=== PATIENT | female | born 1965 | race Caucasian/White ===

== ENCOUNTER 2024-03-23 02:55 | Emergency (ER) | payer BC, SELFPAY ==
[2024-03-23 02:57] VITALS: BP 152/90
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
[2024-03-23] MEDS: TORADOL 30 MG IM (04:33)
[2024-03-23] MEDS: VALIUM INJECTION 5 MG IM (04:33)
[2024-03-23 05:55] VITALS: BP 145/87
== END 2024-03-23 05:55 | disposition home or self-care (01) ==
LOC: EMR 02:55
PROVIDERS: EMERGENCY PHYSICIAN Student in an Organized Health Care Education/Training Program; FAMILY PHYSICIAN Family Medicine
DX: M54.2 Cervicalgia (principal); R03.0 Elevated blood-pressure reading, without diagnosis of hypertension
CPT/HCPCS: 99284; 96372 ×2

== ENCOUNTER 2024-03-24 21:33 | Emergency (ER) | payer BC, SELFPAY ==
[2024-03-24 21:33] VITALS: BMI 23.1
[2024-03-24 21:40] VITALS: BP 133/100
[2024-03-24 22:26] VITALS: BP 126/72
[2024-03-24 23:00] VITALS: BP 132/86
--- NOTE | 2024-03-24 23:35 | ED.GENMED ---
History of Present Illness
General
Chief Complaint: Musculo-Skeletal Complaint
Source: patient
Exam Limitations: none
Time Seen by Provider: 03/24/24 23:12
History of Present Illness
History of Present Illness:
See MDM
Past History
Past History
ED Past Medical History: Psychiatric
ED Past Surgical History:
Social History
Personal:
Living: with family
Employment: Employed
Phy Exam
Physical Exam
Physical Exam:
See MDM
Course
Orders/Labs/Results
Orders:
Orders
03/24/24 23:28
CT Cervical Spine W/o Iv Contr Urgent
Comment:
Reason For Exam: posterior neck pain
03/24/24 23:33
Dexamethasone Sod Phosphate [Decadron] 10 mg IV NOW STA
HYDROmorphone [Dilaudid] 1 mg IV NOW STA
03/24/24 23:56
Complete Blood Count/With Diff Urgent
Comprehensive Metabolic Panel Urgent
Abnormal Lab Results
03/24/24
23:56
WBC 11.9 H 10^3/uL
(4.8-10.8)
Hct 36.5 L %
(37.0-47.0)
Abs Immat Gran (auto) 0.1 H 10^3/uL
(0-0.05)
Absolute Neuts (auto) 9.8 H 10^3/uL
(1.4-6.5)
Absolute Lymphs (auto) 0.8 L 10^3/uL
(1.2-3.4)
Absolute Monos (auto) 1.0 H 10^3/uL
(0.1-0.6)
Neutrophils % 82.7 H %
(42.2-75.2)
Lymphocytes % 6.8 L %
(20.5-51.1)
Sodium 130 L mmol/L
(135-145)
Chloride 93 L mmol/L
(98-107)
Glucose 106 H mg/dl
(70-99)
03/24/24 23:56
03/24/24 23:56
Vital Signs
Initial and Last Documented VS:
Initial Vital Signs
Temp Pulse Resp BP Pulse Ox
98.2 F 108 24 133/100 98
03/24/24 21:40 03/24/24 21:40 03/24/24 21:40 03/24/24 21:40 03/24/24 21:40
Last Documented Vital Signs
Temp Pulse Resp BP Pulse Ox
98.2 F 88 16 127/86 96
03/24/24 21:40 03/25/24 00:00 03/25/24 00:00 03/25/24 00:00 03/25/24 00:30
MDM/Problems Addressed
Differential Diagnosis Includes:
HPI and MDM Narrative:
58-year-old female presenting with ongoing neck pain. She was recently evaluated in the emergency department and diagnosed with likely cervical radiculopathy. She was given a course of muscle relaxants and NSAIDs. She followed up with orthopedics
today and had an x-ray and the diagnosis was confirmed. She is supposed to follow-up with therapy. Patient states the pain is returning and going down both arms. She states she cannot find a comfortable position
Given the ongoing pain, will obtain CT looking for any other pathology but discussed the diagnosis of cervical radicular will give dose of Decadron and will give dose of Dilaudid
Physical exam
General: Mildly uncomfortable
HEENT: protecting airway
Neck: supple. No significant posterior pain. No meningismus. No tenderness to palpation of carotids
CV: No evidence of cyanosis
Resp: No accessory muscle use
Abd: Non-distended
Extremities: No deformities
Neuro: alert. Both upper extremities neurovascularly intact. Muscle strength intact
Psych: Normal affect
Skin: Intact
Problems Addressed including Acute and Chronic Conditions affecting care:
1. Cervical radiculopathy
Acuity: acute
Prognosis: stable
Details: Patient is failing NSAIDs and muscle relaxants. Will give dose of Decadron and Dilaudid and obtain CT
Updates
CT shows expected changes to coincide with her cervical radiculopathy. On reevaluation after pain medicine, patient states that her pain has drastically improved and she feels comfortable going home. We discussed incidental mild hyponatremia and
discussed return precautions and follow-up PCP
Differential Diagnosis (but not limited to): Cervical radiculopathy, muscle spasm, degenerative disc disease
Testing considered: Cervical MRI but this is better suited in the outpatient setting
Drug therapy (if applicable): OTC meds, please see d/c instruction regarding Rx drugs
Amount and/or Complexity of Data Reviewed
Clinical info obtained from: Patient
External data reviewed: N/A
Labs I independently reviewed (but not limited to): Mild hyponatremia
Radiology: The CT scan was personally and independently reviewed. In addition, official CT report reviewed.
Pulse Ox: not hypoxic
EKG independently reviewed: N/A
Personal Care Attendant: N/A
Critical Care: N/A
Risk of Complication:
Social Determinants of health: Good social support
Discussed with other providers: N/A
Escalation of Care includes Admit/Obs: After being observed in the Emergency Department, pt stable for discharge.
Occasional wrong word or 'sound a like' substitutions may have occurred due to the inherent limitations of voice recognition software. Read the chart carefully and recognize, using context, where substitutions have occurred.
*Critical Care Note
Total Time (30-74mins, 75-104mins- exclusive of procedures): Not Applicable
ED Attending Note
-
Portions of this chart may have been created with voice recognition software.� Occasional wrong word or��sound alike� substitutions may have occurred due to the inherent limitations of voice recognition software.
Discharge Plan
Departure
Patient Disposition: Home (Routine Discharge)
Date of Disposition: 03/25/24
Time of Disposition: 00:44
Patient with high blood pressure during this ER visit?: No
Discharge Problem:
Cervical radiculopathy
Instructions: Radiculopathy (DC)
Prescriptions:
New
oxycodone 5 mg tablet
5 mg PO Q8H PRN (Reason: Pain) Qty: 14 0RF
No Action
oxycodone-acetaminophen 5 MG/325 MG tablet
1 tab PO Q6HPRN PRN (Reason: pain) Qty: 10 0RF
ibuprofen 600 MG tablet
600 mg PO Q6HPRN PRN (Reason: pain) Qty: 20 0RF
amoxicillin-pot clavulanate 1 TABLET tablet
1 tab PO Q12 Qty: 20 0RF
diazepam [Valium] 2 mg tablet
2 mg PO TID PRN (Reason: muscle spasm) Qty: 10 0RF
diclofenac sodium 75 mg tablet,delayed release (DR/EC)
75 mg PO BID Qty: 10 0RF
Referrals:
Jaya Salomon MD [Family Provider] -
Activity Restrictions/Additional Instructions:
Please return for any worsening symptoms.
You may return at any time if you have further concerns.
Please follow up with your doctor at the first available appointment, preferably this week. Please discuss your symptoms and physical therapy.
You were given a prescription for narcotics. If you require this pain medicine, please take a daily [id number] stool softener to avoid constipation.
Thank you for choosing [facility].
Interventions
Interventions:
*Risk Screen - Suicide Last Done: 03/24/24 21:40
*General Assessment Last Done: 03/24/24 22:41
*Neglect/Abuse Screening Last Done: 03/24/24 21:40
ED- Fall Risk Assessment Last Done: 03/24/24 22:41
*ED COVID-19 Vaccine History Last Done: 03/24/24 22:44
ED-Musculoskeletal Assessment Last Done: 03/24/24 22:41
Discharge Date and Time
Print Language: WELSH
[2024-03-25] VITALS: BP 127/86
[2024-03-25] MEDS: DILAUDID 1 MG IV
[2024-03-25] MEDS: DECADRON 10 MG IV (00:01)
[2024-03-25 00:13] LABS: % Basophils 0.6 % (0-2); % Eosinophils 0.8 % (0-6); % Immature Granulocytes 0.4 % (0-0.5); % Lymphocytes 6.8 % (20.5-51.1); % Monocytes 8.7 % (1.7-9.3); % Neutrophils 82.7 % (42.2-75.2); Absolute Basophils 0.1 10^3/uL (0-0.2); Absolute Eosinophils 0.1 10^3/uL (0-0.7); Absolute Immature Granulocytes 0.1 10^3/uL (0-0.05); Absolute Lymphocytes 0.8 10^3/uL (1.2-3.4); Absolute Neutrophils 9.8 10^3/uL (1.4-6.5); Hematocrit 36.5 % (37.0-47.0); Hemoglobin 13.2 g/dL (12.0-16.0); Mean Corp Hgb Conc. 36.2 g/dL (33.0-37.0); Mean Corpuscular Hgb 30.3 pg (27.0-31.0); Mean Corpuscular Volume 83.7 fL (81.0-99.0); Mean Platelet Volume 9.1 fL (7.4-10.4); Nucleated Red Blood Cells % 0 %; Platelet Count 322 10^3/uL (130-400); Red Blood Cell Count 4.36 10^6/uL (4.20-5.40); Red Cell Dist. Width 11.9 % (11.5-14.5); White Blood Cell Count 11.9 10^3/uL (4.8-10.8)
[2024-03-25 00:28] LABS: ALT (SGPT) 31 U/L (0-35); AST (SGOT) 31 U/L (14-36); Alkaline Phosphatase 75 U/L (38-126); Blood Urea Nitrogen 11 mg/dl (7-17); Calcium 9.4 mg/dl (8.4-10.2); Carbon Dioxide 30 mmol/L (22-30); Chloride 93 mmol/L (98-107); Estimated Creatinine Clearance 82 ml/min; Glucose 106 mg/dl (70-99); Potassium 4.2 mmol/L (3.5-5.1); Sodium 130 mmol/L (135-145); Total Protein 6.3 g/dl (6.3-8.2); eGFR > 60.00
== END 2024-03-25 00:47 | disposition home or self-care (01) ==
LOC: EMR 21:33
PROVIDERS: EMERGENCY PHYSICIAN Student in an Organized Health Care Education/Training Program; FAMILY PHYSICIAN Family Medicine
DX: M54.12 Radiculopathy, cervical region (principal); E87.1 Hypo-osmolality and hyponatremia
CPT/HCPCS: 99284; 96374; 96375; 72125; 80053; 85025